=== PATIENT | male | born 1990 | race Hispanic/Latino ===

== ENCOUNTER 2024-08-11 18:27 | Emergency (ER) | payer SELFPAY ==
[2024-08-11 20:05] LABS: #Basophils 0.03 10x3/uL (0.0-0.2); #Eosinphils 0.07 10x3/uL (0.0-0.5); #Monocytes 0.43 10x3/uL (0.0-1.1); #Neutrophils 3.53 10x3/uL (1.5-8.4); %Basophils 0.6 % (0.0-2.0); %Eosinophils 1.4 % (0.0-6.0); %Lymphocytes 19.6 % (18.0-47.0); %Monocytes 8.4 % (0.0-10.0); %Neutrophils 69.2 % (40.0-75.0); Hematocrit 37.7 % (38.8-50.0); Hemoglobin 12.2 g/dL (13.5-17.5); Mean Corpuscular HGB CONC 32.4 g/dL (32.0-36.0); Mean Corpuscular Hemoglobin 23.4 pg (27.0-33.0); Mean Corpuscular Volume 72.4 fL (81.2-95.1); Platelet Count 260 10x3/uL (150-450); RBC Distribution Width 14.7 % (11.5-14.5); Red Blood Cell (RBC) Count 5.21 10x6/uL (4.32-5.72); White Blood Cell (WBC) Count 5.1 10x3/uL (3.5-10.5)
[2024-08-11 20:14] LABS: ALT (SGPT) 28 U/L (8-55); AST (SGOT) 18 U/L (5-34); Albumin 4.3 g/dL (3.5-5.0); Alkaline Phosphatase 131 U/L (40-110); Anion Gap 16 mmol/L (10-20); BUN (Urea Nitrogen) 18 mg/dL (8.9-20.6); Bilirubin, Total 0.3 mg/dL (0.2-1.2); Calc. Creatinine Clearance 0 mL/min (70-130); Calcium 10.1 mg/dL (7.8-10.44); Carbon Dioxide 22 mmol/L (22-29); Chloride 97 mmol/L (98-107); Estimated GFR 80; Globulin 3.9 g/dL (2.4-3.5); Lipase 37 U/L (8-78); Magnesium 2.1 mg/dL (1.6-2.6); Potassium 5.3 mmol/L (3.5-5.1); Protein, Total 8.2 g/dL (6.0-8.3); Sodium 130 mmol/L (136-145)
[2024-08-11 20:15] LABS: Bilirubin Neg (Negative); Blood, Urine Negative (Negative); Glucose, Urine (Dipstick) >=1000 mg/dL (Negative); Ketone, Urine Negative (Negative); Leukocyte Negative (Negative); Nitrite Negative (Negative); Protein, Urine (Dipstick) 30 mg/dl (Neg-Trace); Specific Gravity, Urine 1.005 (1.005-1.030); Urobilinogen Normal mg/dL (Less than 2)
[2024-08-11 20:19] LABS: Troponin I Less than 0.010 ng/mL (< 0.028)
[2024-08-11 20:20] LABS: Clarity Hazy (Clear)
[2024-08-11 20:22] LABS: Bacteria/HPF Rare-Few HPF (None Seen); CAUTI Indications for Culture Pelvic or flank pain; RBC/HPF 0-3 HPF (0-3); Squamous Epithelial None Seen HPF (0-3)
[2024-08-11 20:23] LABS: WBC/HPF 0-3 HPF (0-3)
[2024-08-11 20:25] LABS: Urine Culture Reflex No No
[2024-08-11 20:27] LABS: Anisocytosis SLIGHT = 6-15 cells (100X) (0-5/hpf); Microcytosis MODERATE=15-30 cells (100X) (0-5/hpf); Platelet Adequacy Comment Appears Adequate
[2024-08-11 20:30] LABS: Glucose 616 mg/dL (70-105)
[2024-08-11] MEDS ORDERED: Ondansetron PF 4 MG/2 ML Vial ONE (20:31)
[2024-08-11] MEDS ORDERED: Morphine 4 MG/ML VIAL ONE ×2 (20:31→21:56)
[2024-08-11 23:13] LABS: Actual Bicarbonate (HCO3v) 22.2 mEq/L (22-28); Analyzer IN Cardio CS NICU; Base Excess -3.2 mEq/L (-2 - +2); Calcium, Ionized (venous) 1.19 mmol/L (1.16-1.32); Chloride (VBG) 101 mmol/L (98-106); Hematocrit-VBG 40 % (42.0-52.0); Hemoglobin (Hb) 13.7 g/dL (13.2-17.3); Potassium (VBG) 4.73 mmol/L (3.70-5.30); Puncture Site Other Site; Sodium 137 mmol/L (133-146); pH (venous) 7.347 (7.32-7.43)
== END 2024-08-11 23:59 | disposition short-term general hospital (02) ==
LOC: CSHERS 18:27
DX: R55 Syncope and collapse (principal)
CPT/HCPCS: 36415; 36416; 71045; 74176; 80053; 81001; 82010; 82805; 83605; 83690; 83735; 83930; 84484; 85025; 93005; 96374; 96375; 96376; J2272; J2405